=== PATIENT | female | born 1975 | race Caucasian/White ===

== ENCOUNTER → 2017-10-08 | Outpatient (CLI) | payer BC ==
[~2017-10-08] MED LIST: AUBAGIO14 MG PO; AVONEX ADM30 MCG/KIT IM; AVONEX IM; BCP; BCP TD; CENTRUM1 TAB PO; COLOSTRUM; COLOSTRUM PO; LUTERA 0.02 MG-1 TAB PO; MELATONIN1 MG PO; MVI; TYLENOL 325MG325 MG PO; VITAMIN D32000 IU PO; XARELTO STARTER20 MG PO; XARELTO20 MG PO; XYZAL5 MG PO; ZANTAC 150150 MG PO; ZANTAC 7575 MG PO
== END ==
LOC: MC.RAD 08:20
DX: Z12.31 Encounter for screening mammogram for malignant neoplasm of breast (principal)

== ENCOUNTER 2018-04-23 08:45 | Emergency (ER) | payer BC ==
[~2018-04-23] VITALS: Ht 165.1 cm; Wt 104.5 kg
[2018-04-23 08:47] VITALS: TEMP 98.1
[2018-04-23] MEDS ORDERED: PREDNISONE20 MG PO (10:09)
[2018-04-23 10:14] VITALS: BP 124/87; PULSE 82
== END 2018-04-23 10:15 | disposition home or self-care (01) ==
LOC: COL.ER 08:45
DX: R21 Rash and other nonspecific skin eruption (principal); T78.40XA Allergy, unspecified, initial encounter; G35 Multiple sclerosis
CPT/HCPCS: J1100

== ENCOUNTER → 2018-10-28 | Outpatient (CLI) | payer BC ==
[~2018-10-28] MED LIST changes: +PREDNISONE20 MG PO
== END ==
LOC: MC.RAD 10:29
DX: Z12.31 Encounter for screening mammogram for malignant neoplasm of breast (principal)

== ENCOUNTER → 2019-12-01 | Outpatient (CLI) | payer BC | LOC: MC.RAD 12:41 | DX: Z12.31 Encounter for screening mammogram for malignant neoplasm of breast (principal) ==

== ENCOUNTER → 2020-12-03 | Outpatient (CLI) | payer BC | LOC: MC.RAD 07:54 | DX: Z12.31 Encounter for screening mammogram for malignant neoplasm of breast (principal) ==

== ENCOUNTER → 2022-01-03 | Outpatient (CLI) | payer BC | LOC: MC.RAD 09:03 | DX: Z12.31 Encounter for screening mammogram for malignant neoplasm of breast (principal) ==

== ENCOUNTER 2023-11-25 18:04 | Emergency (ER) | payer BC ==
[~2023-11-25] VITALS: Ht 165.1 cm; Wt 102.3 kg
[2023-11-25 18:09] VITALS: BP 170/103; TEMP 98.7
[2023-11-25 18:53] VITALS: PULSE 82
== END 2023-11-25 18:53 | disposition home or self-care (01) ==
LOC: COL.ER 18:04
DX: S63.501A Unspecified sprain of right wrist, initial encounter (principal); S50.812A Abrasion of left forearm, initial encounter; W01.198A Fall on same level from slipping, tripping and stumbling with subsequent striking against other object, initial encounter

== ENCOUNTER → 2024-05-07 | Outpatient (CLI) | payer BC ==
[~2024-05-07] MED LIST changes: +CENTRUM SILVER1 TAB; +DITROPAN 5MG TAB5 MG PO; +ELIQUIS 5MG PO; +NEURONTIN100 MG/CAP PO
== END ==
LOC: MC.RAD 10:49
DX: Z12.31 Encounter for screening mammogram for malignant neoplasm of breast (principal)

== ENCOUNTER 2024-06-29 08:30 | Emergency (ER) | payer BC ==
[~2024-06-29] VITALS: Ht 165.1 cm; Wt 102.3 kg
[~2024-06-29 08:30] MED LIST changes: -CENTRUM SILVER1 TAB; -DITROPAN 5MG TAB5 MG PO; -ELIQUIS 5MG PO; -NEURONTIN100 MG/CAP PO
[2024-06-29 09:00] LABS: BASO # 0.1 K/mm3 (0.0-0.2); BASO % 0.9 % (0.0-2.0); EOS # 0.2 K/mm3 (0.0-0.7); EOS % 2.6 % (0.0-4.0); GRAN # 5.3 K/mm3 (1.4-6.5); GRAN % 55.8 % (42.2-75.2); HEMATOCRIT 45.3 % (37.0-47.0); HEMOGLOBIN 14.4 g/dl (12.5-16.0); LYMPH # 2.9 K/mm3 (1.2-3.4); LYMPH % 31.3 % (20.0-51.0); MEAN CELL VOLUME 99 fl (80.0-100.0); MEAN CORPUSCULAR HEMOGLOBIN 31 pg (27-31); MEAN CORPUSCULAR HGB CONC 32 g/dl (33.0-37.0); MONO # 0.8 K/mm3 (0.1-0.6); MONO % 8.2 % (1.7-9.3); PLATELET COUNT 206 K/mm3 (130-400); REDCELL DISTRIBUTION WIDTH-CV 14.5 % (11.5-14.5)
[2024-06-29] MEDS ORDERED: Pantoprazole 40 MG in NS 10 ML IV ONE (09:00)
[2024-06-29] MEDS ORDERED: Morphine 4 MG/ML VIAL IV ONE (09:00)
[2024-06-29] MEDS ORDERED: methylPREDNISolone Sod Succ 125 MG/2 ML VIAL IV ONE (09:00)
[2024-06-29] MEDS ORDERED: Ondansetron 4 MG/2 ML VIAL IV ONE (09:00)
[2024-06-29 09:20] LABS: ALBUMIN 3.3 g/dL (3.5-5.0); BILIRUBIN,TOTAL 0.5 mg/dL (0.2-1.2); CALCIUM 9.4 mg/dL (8.4-10.2); CREATININE, serum 0.99 mg/dL (0.57-1.11); POTASSIUM 4.1 mEq/L (3.5-4.5)
[2024-06-29] MEDS ORDERED: ELIQUIS 5MG PO (09:58)
[2024-06-29] MEDS ORDERED: DITROPAN 5MG TAB5 MG PO (09:58)
[2024-06-29] MEDS ORDERED: CENTRUM SILVER1 TAB (09:58)
[2024-06-29] MEDS ORDERED: NEURONTIN100 MG/CAP PO (09:59)
[2024-06-29] MEDS ORDERED: hydrALAZINE 20 MG/ML 1 ML VIAL IV ONE (12:45)
[2024-06-29 13:45] VITALS: BP 158/96; PULSE 118; TEMP 98.1
== END 2024-06-29 14:47 | disposition short-term general hospital (02) ==
LOC: COL.ER 08:30
PROVIDERS: Personal Emergency Response Attendant
DX: R53.1 Weakness (principal); G35 Multiple sclerosis; Z79.02 Long term (current) use of antithrombotics/antiplatelets
CPT/HCPCS: J0360; J2270; J2405; J2470; J2919; J7050

== ENCOUNTER 2024-07-16 12:23 | Inpatient (IN) | payer BC ==
[~2024-07-16] VITALS: Ht 165.1 cm; Wt 112.6 kg
[~2024-07-16 12:23] MED LIST changes: +CENTRUM SILVER1 TAB; +DITROPAN 5MG TAB5 MG PO; +ELIQUIS 5MG PO; +NEURONTIN100 MG/CAP PO
[2024-07-16 15:00] VITALS: BP 141/87; PULSE 52; TEMP 97.9
[2024-07-16] MEDS ORDERED: Polyethylene Glycol 3350 17 GM PDS PO PRN (15:00)
[2024-07-16] MEDS ORDERED: Acetaminophen 325 MG TAB PO PRN (15:00)
[2024-07-16] MEDS ORDERED: Naloxone 0.4 MG/ML VIAL IV PRN (15:00)
[2024-07-16] MEDS ORDERED: Docusate Sodium 100 MG CAP PO PRN (15:00)
[2024-07-16] MEDS ORDERED: Sennosides/Docusate 8.6-50 MG TAB PO PRN (15:00)
[2024-07-16] MEDS ORDERED: TESSALON P100 MG/CAP PO (15:49)
[2024-07-16] MEDS ORDERED: TUMS500 MG PO (15:50)
[2024-07-16] MEDS ORDERED: BENADRYL25 M2 PO (15:50)
[2024-07-16] MEDS ORDERED: LASIX 20MG TABL20 MG PO (15:51)
[2024-07-16] MEDS ORDERED: LOVENOX150 MG/ML SQ (15:51)
[2024-07-16] MEDS ORDERED: HYDROCORTISONE30 G3 TP (15:51)
[2024-07-16] MEDS ORDERED: SALONPAS1 EACH TP (15:52)
[2024-07-16] MEDS ORDERED: ROBAXIN 75750 MG/TAB PO (15:52)
[2024-07-16] MEDS ORDERED: [UNRECOGNIZED DRUG - OTHER] TOP (15:53)
[2024-07-16] MEDS ORDERED: ROXICODONE 55 MG/TAB PO (15:54)
[2024-07-16] MEDS ORDERED: K-DUR20 MEQ PO (15:54)
[2024-07-16] MEDS ORDERED: MASON NATURAL2000 IU PO (15:55)
[2024-07-16] MEDS ORDERED: IMITREX100 MG PO (15:56)
[2024-07-16] MEDS ORDERED: [UNRECOGNIZED DRUG - OTHER] PO (15:56)
[2024-07-16] MEDS ORDERED: oxyCODONE 5 MG TAB PO PRN (16:00)
[2024-07-16] MEDS ORDERED: Mineral Oil/Petrolatum Cream 113 GM Jar TP PRN (16:00)
[2024-07-16] MEDS ORDERED: diphenhydrAMINE 25 MG CAP PO PRN (16:15)
[2024-07-16] MEDS ORDERED: Menthol Cough/Sore Throat LOZENGE MM PRN (16:15)
[2024-07-16] MEDS ORDERED: Benzonatate 100 MG CAP PO PRN (16:15)
--- NOTE | 2024-07-16 17:16 | NUR ---
PATIENT BROUGHT TO FLOOR AT APPROXIMATELY 1400. PATIENT ADMITTED WITH ARAGON TO DD WITH DAJUAN OUTPUT. OPEN, OOZING/BLEEDING BLISTERS ON BACK FROM INCISION WHICH HAD DERMABOND APPLIED, PATIENT LATER FOUND OUT WAS ALLERGIC TO. NON-ADHESIVE PAD WITH PAPER TAPE APPLIED. COCCYX PRESSURE WOUND APPEARS TO BE A STAGE 2, OPEN, BARRIER CREAM APPLIED. GILBERTO AREA MOIST, REDDENED. BARRIER CREAM APPLIED. PATIENT REPORTS PAIN, DENIES NEED FOR PAIN MEDICATION AT THIS TIME. PATIENT HAS A DRY COUGH, CORAZON AWARE. INTAKE PERFORMED. NO FURTHER NEEDS. CALL LIGHT IN REACH. BED ALARM ON.
[2024-07-16 17:24] VITALS: BP_SYST 141
[2024-07-16 18:15] VITALS: BP 111/78; PULSE 113; TEMP 97.6
--- NOTE | 2024-07-16 20:30 | NUR ---
Patient with a MEWs score of 3 due to tachycardia/resp rate of 18. Patient denies chest pain/shortness of breath. Is currently on 2L/NC with adequate oxygentation. States O2 was placed earlier due to "coughing fits." Current HR 111 with RR of 18. Noted to have a dry cough. States tessalon perles helps but does not last long enough. Received at approx 1730. States she can not take liquid cough medication. Morton given per dr order and remains at bedside with instruction can take [id number] placed able to leave at bedside. Report given to primary nurse LUZMA Davila. Will continue to monitor.
[2024-07-16] MEDS ORDERED: Gabapentin 300 MG CAP PO SCH (21:00)
[2024-07-16] MEDS ORDERED: Melatonin 3 MG TAB PO SCH (21:00)
[2024-07-16] MEDS ORDERED: Oxybutynin 5 MG TAB PO SCH (21:00)
[2024-07-16] MEDS ORDERED: Levocetirizine 5 MG **** subs to Cetirizine 10 MG PO SCH (21:00)
[2024-07-16] MEDS ORDERED: Methocarbamol 750 MG TAB PO SCH (21:00)
[2024-07-16] MEDS ORDERED: Cetirizine 10 MG TAB PO SCH (21:00)
[2024-07-16] MEDS ORDERED: Hydrocortisone 1% Cream 30 GM TUBE TP SCH (21:00)
[2024-07-16 21:47] VITALS: BP_SYST 111
--- NOTE | 2024-07-16 23:22 | NUR ---
ASSESSMENT COMPLETED EARLIER. MEDICATIONS ADMINISTERED PER EMAR. PT HAS OXYGEN VIA NC RUNNING AT 2L- SHE HAS NO COMPLAINTS OF SHORTNESS OF AIR. SHE IS LAYING IN BED CURRENTLY WATCHING TV. HER DAUGHTER VISITED HER AT BEDSIDE. HALLS ARE IN HER ROOM FOR HER COUGH. SHE HAS NO COMPLAINTS AT THIS TIME. CALL LIGHT IS WITHIN REACH. BED IN LOWEST POSITION, BED ALARMS ARE ON.
--- NOTE | 2024-07-17 01:47 | NUR ---
PT LAYING IN BED ASLEEP- EASILY AROUSED FROM SLEEP. CALL LIGHT IS WITHIN REACH, BED IN LOWEST POSITION, BED ALARM IS ON.
[2024-07-17 05:12] VITALS: BP 115/73; PULSE 102; TEMP 98.8
[2024-07-17 07:00] VITALS: BP_SYST 115
--- NOTE | 2024-07-17 08:30 | NUR ---
PT A&OX4. VSS. PT ON OXYGEN VIA NASAL CANNULA. SHIFT ASSESSMENT COMPLETE AND MEDS ADMINISTERED. PT IS ASSIST X2 WITH SIT TO STAND. WOUND CARE NURSE IN TO SEE PT AND WILL BE PUTTING IN NEW ORDERS FOR SKIN ISSUES. MEPILEX APPLIED TO MIDBACK COVERING INCISIONS. NO FURTHER NEEDS AT THIS TIME. CALL LIGHT WITHIN REACH.
[2024-07-17] MEDS ORDERED: Lidocaine 4% Topical Patch TP SCH (09:00)
[2024-07-17] MEDS ORDERED: Cholecalciferol (Vit D3) 1000 Units TAB PO SCH (09:00)
[2024-07-17] MEDS ORDERED: Patient's Own Medication Item PO SCH (09:00)
[2024-07-17] MEDS ORDERED: Zinc Oxide 20% Ointment 28 GM TUBE TOP PRN (10:15)
[2024-07-17] MEDS ORDERED: Albuterol/Ipratropium 3 MG-0.5 MG/3 ML Neb Soln IH PRN (13:00)
[2024-07-17] MEDS ORDERED: Miconazole 2% Topical Powder BOTTLE TP SCH (13:15)
[2024-07-17] MEDS ORDERED: Albuterol/Ipratropium 3 MG-0.5 MG/3 ML Neb Soln IH SCH (14:00)
--- NOTE | 2024-07-17 14:30 | NUR ---
supervisor fur floor worker met with patient to welcome her to the unit and complete assessment. Patient reports she lives in [place] with her , Mahad, P# [phone]. PCP is Dr. Mckeon, [facility]. No issues affording medications. DPOA-HC is Mahad then her mother Lilian Mata. DME is cane and rollator walker. Patient reports prior to hospitalization she was independent with ADLS. Insurance is [employer]. Patient reports they have a form of transportation for appointments. Patient has two steps into the house. SW explained she would continue to follow her care while here and assist with discharge planning. SW left her contact information for patient in case she has questions or concerns.
[2024-07-17 16:56] VITALS: BP 107/71; PULSE 112; TEMP 98.5
[2024-07-17 19:36] VITALS: BP_SYST 107
[2024-07-17 19:40] VITALS: PULSE 108
[2024-07-17 19:41] VITALS: PULSE 110
--- NOTE | 2024-07-17 19:46 | NUR ---
Patient with MEW score of 3, manually rechecked the HR and it was 108, on dynamap it's 110, denies shortness of air/chest pain, sats 90's, charge nurse informed, will closely monitor.
--- NOTE | 2024-07-17 21:03 | NUR ---
Patient resting in bed, assessed at this time, see shift assessment, A/Ox4, reports pain to her back, PS of 3/10, oxycodone given per request, denies SOA, has been coughing non productive, tessalon carola given, on room air, CAITLIN's on both lower extremities, with faria catheter to dependent drainage, denies further needs, call light and personal items within reach, will continue to monitor.
[2024-07-17] MEDS ORDERED: guaiFENesin 200 MG TAB PO PRN (23:45)
--- NOTE | 2024-07-17 23:50 | NUR ---
Patient called and reports she's been coughing and took cough drops few minutes ago and doesn't seem to work, informed Ross, the PA and received an order for guiafenisen, will continue to monitor.
[2024-07-18 05:48] VITALS: BP 120/77; PULSE 114; TEMP 100
[2024-07-18 06:37] VITALS: PULSE 111; TEMP 98.7
[2024-07-18 07:01] VITALS: BP_SYST 120
--- NOTE | 2024-07-18 08:00 | NUR ---
PATIENT AWAKE AND ALERT, SITTING UP IN BED. PATIENT DENIES ANY NEEDS OR COMPLAINTS AT THIS TIME. CALL LIGHT WTIHIN REACH, FALL PRECAUTIOSN IN PLACE, TEDHOSE ON.
[2024-07-18 17:59] VITALS: BP 170/83; PULSE 132; TEMP 100.7
[2024-07-18 18:20] VITALS: BP 133/82; PULSE 134
--- NOTE | 2024-07-18 18:20 | NUR ---
NIGHT CLAM DREDGE BOAT CAPTAIN NOTIFIED PATIENT HR ELEVATED IN THE 130S, PATIENT WITH TEMP OF 100.7. YANICK MAYER HAD DRY COUGH FOR DAYS AND HAS BEEN RECIEVING MUCINEX AND TESSLON PEARLS INTERMITTENTLY WITH NO IMPROVEMENT. PATIENT DENIES ANY SOB OR FEELING OF HR RACING. PER PATINET SHE JUST "DOESNT FEEL GOOD." NEW ORDERS PLACED BY CLAM DREDGE BOAT CAPTAIN.
--- NOTE | 2024-07-18 18:30 | NUR ---
LAB AND RADIOLOGY NOTIFIED OF NEW ORDERS.
[2024-07-18 19:00] VITALS: BP_SYST 133
[2024-07-18 19:06] LABS: COLLECTION METHOD CATHETER
[2024-07-18 19:13] LABS: MEAN CELL VOLUME 98 fl (80.0-100.0); MEAN CORPUSCULAR HGB CONC 31 g/dl (33.0-37.0); MEAN PLATELET VOLUME 9.9 fl (7.4-10.4); PLATELET COUNT 421 K/mm3 (130-400); REDCELL DISTRIBUTION WIDTH-CV 15.2 % (11.5-14.5)
[2024-07-18 19:14] LABS: URINE APPEARANCE CLOUDY (CLEAR/HAZY); URINE BLOOD 3+ (NEGATIVE); URINE COLOR YELLOW (YELLOW); URINE GLUCOSE NEGATIVE (NEGATIVE); URINE KETONE NEGATIVE (NEGATIVE); URINE NITRATE POSITIVE (NEGATIVE); URINE PROTEIN(semi-quant) 1+ (NEGATIVE); URINE UROBILINOGEN 0.2 E.U/dL (0.2-1.0)
[2024-07-18 19:15] LABS: HEMATOCRIT 29.3 % (37.0-47.0); HEMOGLOBIN 9.2 g/dl (12.5-16.0); MEAN CORPUSCULAR HEMOGLOBIN 31 pg (27-31)
--- NOTE | 2024-07-18 19:15 | NUR ---
ALL NEW ORDERS COMPLETED. PATIENT IS AWAKE AND ALERT, SITTING UP IN BED. DROPLET/CONTACT PRECAUTIONS IN PLACE. PATIENT DENIES ANY NEEDS AT THIS TIME. CALL LIGHT WITHIN REACH. FALL PRECAUTIONS IN PLCAE.
[2024-07-18 19:32] LABS: ALBUMIN 2.1 g/dL (3.5-5.0); BILIRUBIN,TOTAL 0.3 mg/dL (0.2-1.2); CALCIUM 8.4 mg/dL (8.4-10.2); CREATININE, serum 0.69 mg/dL (0.57-1.11); TOTAL PROTEIN 5.6 g/dl (6.2-8.1)
--- NOTE | 2024-07-18 19:32 | NUR ---
CLIFF LOCKHART NOTIFIED OF PATIENT +COVID
[2024-07-18 19:33] LABS: MUCOUS PRESENT (NOT PRESENT); URINE BACTERIA MANY /hpf (NONE SEEN); URINE WBC 20-50 /hpf (0-2)
[2024-07-18 19:44] LABS: BAND 5 % (0-10); EOSINOPHIL 3 % (0-4); LYMPHOCYTE 11 % (20.0-51.0); NEUTROPHILS 77 % (42.0-75.2); NUCLEATED RED BLOOD CELL 1 (0-6)
[2024-07-18 19:45] LABS: ANISOCYTOSIS 1+; HYPOCHROMIA 2+; PLATELET ESTIMATE INCREASED (NORMAL); POLYCHROMASIA 1+
[2024-07-18 19:46] LABS: STOMATOCYTE 1+
[2024-07-18] MEDS ORDERED: Meropenem 500 MG in Water For Injection,Sterile 10 ML IV SCH (20:00)
--- NOTE | 2024-07-18 23:00 | NUR ---
IV inserted to Rt forearm by RN. Scheduled meds administered per JAN. Shift assessment complete. Pt. is tachycardic at this time. 2+ pitting edema to BLE and feet. Respirations are shallow. Pt. has dry, non-productive cough. Lung sounds are diminished at bases. However, upper lobes are clear. Indwelling catheter to dependent drainage and securement device in place- urine is yellow and cloudy. Pt. has small open wound to coccyx and gluteal cleft is both red and excoriated. Redness across panis w/ small area of excoriation to Rt. side. Incision to mid back is dressed w/ mepilex. Noted shadowing to dressing. No further outstanding findings. Pt. c/o worsening dry cough. Hospitalist, MALISSA Saavedra, notified. New orders received.
[2024-07-18] MEDS ORDERED: DEXTROMETHORPHAN PO PRN (23:15)
[2024-07-18] MEDS ORDERED: GUAIFENESIN PO PRN (23:15)
[2024-07-19 05:16] VITALS: BP 131/67; PULSE 115; TEMP 99
--- NOTE | 2024-07-19 05:51 | NUR ---
Pt. VS improved since earlier in the shift. O2 at 2L/min via nasal cannula Pt. denies complaints or request at this time. Pt currently resting in bed w/ call light in reach.
[2024-07-19 07:02] VITALS: BP_SYST 131
--- NOTE | 2024-07-19 09:10 | NUR ---
PT RESTING IN BED, ALERT AND ORIENTEDX4. PT RATES PAIN IN BACK /. PT COMPLAINS OF HEADACHE AND SHORTNESS OF BREATH. GAVE PT TYLENOL AND SAT PT UP IN BED. ASSESSED PT. PT LUNGS ARE WHEEZY. TEDS ON LOWER EXTREMITES. PUT DESENEX AROUND PANUS AND PERINEUM AREAS. GAVE PT MORNING MEDS. COULD NOT FIND PT HOME MED. NOT IN MED ROOM OR PT ROOM. STILL LOOKING FOR IT. NO OTHER COMPLAINTS AT THIS TIME. CALL LIGHT WITHIN REACH.
--- NOTE | 2024-07-19 10:41 | NUR ---
pharmacy notified of missing home medicaitons. contacted last nurse to chart on giving med. last nurse states that it was put in the pt bin in the med room. pt states that he did not take the med home with him either.
[2024-07-19 17:18] VITALS: BP 134/64; PULSE 131; TEMP 100
[2024-07-19 19:07] VITALS: BP_SYST 134
--- NOTE | 2024-07-19 20:45 | NUR ---
Scheduled meds administered per JAN. Shift assessment complete. Pt. is on 2L O2/min via nasal cannula. Respirations are shallow. Lung sounds still diminished at LUCY bases w/ LUCY upper lobes being clear. Dry cough still present. Indwelling catheter to dependent drainage and securement device in place- urine is yellow and cloudy. Small open wound to coccyx and gluteal cleft is red and excoriated. Redness and excoriation improved since previous NOC shift. Pt. requesting break from CAITLIN hose. CAITLIN hose removed. 2+ edema to RLE persists. Edema to LLE pitting +1. Area of redness to Rt stauffer/calf. Pt denies pain to the area. Incidion to mid back is dressed w/ mepilex- dressing CDI. No further outstanding findings. Call light in reach.
[2024-07-20] VITALS (15 sets, daily range): BP systolic 94–130; BP diastolic 56–84; PULSE 68–124; TEMP 93–102.6
--- NOTE | 2024-07-20 01:37 | NUR ---
Oral temp of 100.3. PRN tylenol administered per JAN. Will continue to monitor. Pt. requesting Mucinex DM. Med administered per JAN.
--- NOTE | 2024-07-20 02:20 | NUR ---
Upon reassesment, temperature is 102.6. Hospitalist, MALISSA Saavedra, notified. New orders received. Lab notified of new orders.
[2024-07-20] MEDS ORDERED: Ibuprofen 400 MG TAB PO ONE (02:30)
--- NOTE | 2024-07-20 03:20 | NUR ---
Temperature 98.4 after administration of Motrin per JAN. Ice pack to axilla and cool rag to forehead. Pt. states she is "feeling much better." Will continue to monitor.
--- NOTE | 2024-07-20 06:06 | NUR ---
Pt's temperature remains controlled at this time- now reading 97.9. Pt's HR is now WNL at 90 bpm. Pt states she is feeling "a lot better" this morning. Denies request or complaints. Pt is currently resting in bed w/ call light in reach and fall precautions in place.
--- NOTE | 2024-07-20 07:41 | NUR ---
Bedside report received from IBAN Fuentes. Pt resting in bed with no complaints. Call light within reach and fall precautions in place.
--- NOTE | 2024-07-20 09:25 | NUR ---
Notifed Dr. Boswell about pt being tachycardia when becoming febrile. VORB to implement telemetry.
--- NOTE | 2024-07-20 10:15 | NUR ---
Pt awake in bed visiting with daughter at bedside. Shift assessment completed. VSS. Telemetry in place. Silvestre catheter in place dependently draining clear yellow urine. Pericare provided. INT to Rt forearm patent, flushes without complications. Pt provided home medication to this nurse to send to pharmacy. Pharmacist Mary Kate notifed of home medicaiton in pt bin in med room. Pt denies pain at this time rating general discomfort 2/10. Pt has no request at this time. Call light within reach and fall precautions in place.
--- NOTE | 2024-07-20 10:56 | NUR ---
Pt awake in bed visiting with
--- NOTE | 2024-07-20 11:00 | NUR ---
ultra sound technician brought home medication back to IPR unit. This nurse and pharmacy assistant returned home medicaiton to pt and pt placed home medicaiton in bedside table drawer. This nurse and pharmacy assistant searched pt room to look for missing home medication from prior and unsuccessful at finding lost medicaiton. Pt has no request at this time. Charge nurse Loreta and tank house operator helper Vesna aware of pt keeping home medication at bedside.
--- NOTE | 2024-07-20 19:20 | NUR ---
THIS RT WEANED PT TO RA AT THIS TIME. WILL REASSESS O2 NEEDS THROUGHOUT THE NIGHT
[2024-07-21] VITALS (12 sets, daily range): BP systolic 109–134; BP diastolic 63–72; PULSE 99–113; TEMP 98.3–100.5
--- NOTE | 2024-07-21 08:20 | NUR ---
PATIENT TEMP AT 100.8. PO TYLENOL ADMINISTERED.
--- NOTE | 2024-07-21 10:38 | NUR ---
SUTURE REMOVED FROM RUE. PATIENT TOLERATED WELL. NO BANDAGE APPLIED IT WAS NOT NEEDED.
--- NOTE | 2024-07-21 11:13 | NUR ---
PATIENT ALERT AND ORIENTED X4. VSS. PATIENT HERE FOR REHAB S/P BACK SURGERY. PATIENT DENIES ANY PAIN THIS MORNING. INCISION TO MID BACK WITH MINIMAL DRAINAGE, DRESSING CHANGED TO NON-ADHESIVE AND PAPER TAPE, DEREK SUTURE REMOVED PER DR CHANDRA ORDERS. SEE SKIN ASSESSMENT. AM MEDS ADMINISTERED. ARAGON TO DD WITH DAJUAN OUTPUT. CATH CARE PROVIDED. PATIENT RESTING IN BED, NO FURTHER NEEDS. CALL LIGHT IN REACH. BED ALARM ON.
[2024-07-21] MEDS ORDERED: Azithromycin 500 MG in NS 250 ML IV SCH (12:30)
[2024-07-22] VITALS (14 sets, daily range): BP systolic 107–139; BP diastolic 63–89; PULSE 95–103; TEMP 97.6–98.6
--- NOTE | 2024-07-22 01:21 | NUR ---
PT LAYING IN BED. ASSESSMENT COMPLETED EARLIER. PT HAS NO COMPLAINTS OF SOA AT THIS TIME. MEDICATIONS ADMINISTERED PER EMAR. BED IN LOWEST POSITION WITH BED ALARMS ON. IV SITE FLUSHED WITH 5 ML OF SALINE. NO SIGNS OF PHLEBITIS OR INFILTRATION. CALL LIGHT IS WITHIN REACH NO CONCERNS AT THIS TIME.
--- NOTE | 2024-07-22 05:03 | NUR ---
NIGHT HAS BEEN UNEVENTFUL. CALL LIGHT IS WITHIN REACH AND BED ALARM IS ON, BED IS IN LOWEST POSITION.
--- NOTE | 2024-07-22 08:40 | NUR ---
PATIENT SITTING UP IN BED. ALERT AND ORIENTED. DENIES PAIN, JUST STATES SHE HAS DISCOMOFRT AT HER BASELINE, 12/29. SHIFT ASSESSMENT COMPLETE. INCISION TO RIGHT UPPER ARM IS CDI. OPEN TO AIR. INCISION TO LUMBAR SPINE HAS NONADHESIVE DRSG AND PAPER TAPE IN PLACE. CDI. REDNESS NOTED TO GROIN AREA. HYGIENE PROVIDED, DESENEX APPLIED. GILBERTO AND ARAGON CARE PROVIDED. NO PROGRESSION OF STAGE I AND STAGE II NOTED. CDI. ARAGON DD WITH DARK DAJUAN URINE NOTED. PATIENT C/O COUGH AND REQUESTING MUCINEX DM. THIS RN ADMINISTERED MUCINEX DM. PATIENT NOW SITTING UP TO EAT BREAKFAST. DENIES FURTHER NEEDS OR CONCERNS AT THIS TIME. ALL NEEDS MET AT THIS VISIT. CALL LIGHT WITHIN REACH.
--- NOTE | 2024-07-22 09:32 | NUR ---
PATIENT CALLED TO USE BED FONG. THIS RN ASSISTED PATIENT TO USE BED FONG. PATIENT HAD LARGE, SEMI FORMED BROWN STOOL IN BED FONG. THIS RN PROVIDED GILBERTO CARE. ZINC APPLIED TO SORES AND SURROUNDING AREAS FOR PREVENTION. WHILE PATIENT WAS ON RIGHT SIDE, THIS RN CHANGED DRESSING TO BACK INCISION. NONADHESIVE DRSG TO SITE, SECURED WITH PAPER TAPE. PATIENT TOLERATED WELL. ARAGON EMPTIED. 1500 MLS OF CLEAR YELLOW URINE NOTED. AT BEDSIDE. DENIES FURTHER NEEDS OR CONCERNS AT THIS TIME. CALL LIGHT WITHIN REACH.
--- NOTE | 2024-07-22 13:22 | NUR ---
PATIENT WORKING WITH THERAPY. THIS RN ATTEMPTED TO ADMINISTER IV ABX PER MAR, BUT PATIENT ASKED IF IT COULD WAIT UNTIL 1400, D/T DIFFICULTY GETTING IN BED WITH IV INFUSING.
--- NOTE | 2024-07-22 15:28 | NUR ---
Admission QIM scores were reviewed by the team. Code of 88 chosen for oral hygiene was determined by team discussion to be the most usual performance before interventions for this patient during the assessment period. Code of 88 chosen for toileting hygiene was determined by team discussion to be the most usual performance for this patient during the discharge assessment period. Code of 88 chosen for shower/bathe self was determined by team discussion to be the most usual performance before interventions for this patient during the assessment period. Code of 88 chosen for lower body dressing was determined by team discussion to be the most usual performance before interventions for this patient during the assessment period. Code of 2 chosen for rolling left to right was determined by team discussion to be the most usual performance before interventions for this patient during the assessment period. Code of 2 chosen for sit to lying was determined by team discussion to be the most usual performance before interventions for this patient during the assessment period. Code of 3 chosen for lying to sitting side of bed was determined by team discussion to be the most usual performance before interventions for this patient during the assessment period. Code of 88 chosen for sit to stand was determined by team discussion to be the most usual performance for this patient during the discharge assessment period. Code of 88 chosen for chair to bed was determined by team discussion to be the most usual performance for this patient during the discharge assessment period.--PD Clarissa
--- NOTE | 2024-07-22 22:20 | NUR ---
PT IS LAYING IN BED. ASSESSMENT COMPLETED EARLIER. NO COMPLAINTS AT THIS TIME. IV FLUSHED NO SIGNS OF IV COMPLICATIONS. NO SIGNS OF PHLEBITIS OR INFILTRATION. PT HAS CALL LIGHT WITHIN REACH. BED IS IN LOWEST POSITION WITH BED ALARMS ACTIVATED.
[2024-07-23] VITALS (9 sets, daily range): BP systolic 101–124; BP diastolic 61–72; PULSE 83–97; TEMP 97.7–98.3
--- NOTE | 2024-07-23 03:55 | NUR ---
ATTEMPTED IV START ON LEFT AC. FLASHBACK WAS NOTED AND IV WAS ADVANCED. IV WAS INFILTRATED. THIS NURSE REMOVED THE IV AND COVERED WITH GAUZE. THIS NURSE NOTIFIED BUTTON FACING MACHINE OPERATOR AND HOUSE STATED TO LEAVE IV THAT IS CURRENTLY IN FOR THE TIME BEING AND NOTIFY [facility] IV SERVICES DUE TO THE EDEMA IN PT HANDS.
--- NOTE | 2024-07-23 08:30 | NUR ---
Pt is A&Ox4. Pt eating breakfast. [facility] Services in room placing new IV. IV placed in LAC. Pt is on contact/droplet precautions for COVID. Pt has productive cough with scant amount of white sputum. No c/o pain. Skin treatments done. Shift assessment complete and medications administered. Pt is x2 assist. No further needs at this time. Call light within reach.
--- NOTE | 2024-07-23 12:36 | NUR ---
ironworker helper shop attended IPR team conference with IPR team to discuss patient s progress. Patient is not medically ready for discharge. Patient will be re-evaluated next week by the team. SW will continue to follow.
--- NOTE | 2024-07-23 14:30 | NUR ---
Reviewed Team Conference notes w/ pt & w/ copy provided. Informed them the team is planning on re-evaluating next Sunday, which they were good w/. Spoke w/ them regarding concern for insurance & her being in isolation. Explained to them, that pt is not sick enough to return to acute care & explained the amount of therapy provided. Continued to explain, insurance would prefer she is doing more than less if able to tolerate. She agreed w/ this. They had no other questions at this time. SW will continue to follow to provide support & assist w/ d/c planning.
--- NOTE | 2024-07-23 23:11 | NUR ---
PT LAYING IN BED. SHE HAS NO COMPLAINTS AT THIS TIME. IV FLUSHED WITH 5 ML OF SALINE. NO SIGNS OF PHLEBITIS OR INFILTRATION. HER BED IS IN THE LOWEST POSITION AND BED ALARMS ARE ON. ASSESSMENT COMPLETED EARLIER, MEDICATIONS ADMINISTERED PER EMAR.
[2024-07-24] VITALS (7 sets, daily range): BP systolic 105–132; BP diastolic 74–85; PULSE 87–106; TEMP 97.3–99.1
--- NOTE | 2024-07-24 02:36 | NUR ---
PT WAS TAKEN OFF OF TELEMETRY. POWDER WAS APPLIED TO HER BREAST AND GROIN. NO COMPLAINTS AT THIS TIME. CALL LIGHT IS WITHIN REACH. HER BED IS IN LOWEST POSITON AND ALARMS ARE ON.
[2024-07-24 06:32] LABS: BASO # 0.2 K/mm3 (0.0-0.2); BASO % 2.1 % (0.0-2.0); EOS # 0.8 K/mm3 (0.0-0.7); GRAN # 3.8 K/mm3 (1.4-6.5); GRAN % 54.2 % (42.2-75.2); LYMPH # 1.5 K/mm3 (1.2-3.4); LYMPH % 21.5 % (20.0-51.0); MEAN CELL VOLUME 100 fl (80.0-100.0); MEAN CORPUSCULAR HGB CONC 30 g/dl (33.0-37.0); MEAN PLATELET VOLUME 10.3 fl (7.4-10.4); MONO # 0.7 K/mm3 (0.1-0.6); MONO % 9.9 % (1.7-9.3); PLATELET COUNT 420 K/mm3 (130-400); RED BLOOD COUNT 2.74 M/mm3 (4.10-5.30); REDCELL DISTRIBUTION WIDTH-CV 15.7 % (11.5-14.5)
[2024-07-24 06:34] LABS: HEMOGLOBIN 8.2 g/dl (12.5-16.0); MEAN CORPUSCULAR HEMOGLOBIN 30 pg (27-31)
[2024-07-24 06:35] LABS: HEMATOCRIT 27.3 % (37.0-47.0)
[2024-07-24 06:54] LABS: CALCIUM 8.7 mg/dL (8.4-10.2); CREATININE, serum 0.58 mg/dL (0.57-1.11); POTASSIUM 3.8 mEq/L (3.5-4.5)
--- NOTE | 2024-07-24 07:30 | NUR ---
Patient a&ox4. No c/o pain or n/v. Up in w/c for breakfast per dr's orders. Patient transfers with slideboard with assist x1-2. Productive cough improving and only coughing up scant amounts. TEDs on. Shift assessment complete and medications administered. No further needs at this time.
--- NOTE | 2024-07-24 19:28 | NUR ---
RECEIVED CHANGE OF SHIFT REPORT FROM DAY SHIFT NURSE. PATIENT RESTING IN BED, CALL LIGHT IN REACH, BED EXIT ALARM ON. DENIES ANY NEEDS OR COMPLAINTS AT TIME OF REPORT.
--- NOTE | 2024-07-24 20:00 | NUR ---
DECREASED ROM/STRENGTH TO BACK DUE TO SURGERY. DENIES CHEST PAIN/SHORTNESS OF BREATH/NAUSEA CURRENTLY. DENIES C/O PAIN AT THIS TIME. REPORTS HAS NOT NEEDED TO WEAR OXYGEN FOR THE PAST SEVERAL NIGHTS. PATIENT CONTINUES ON ROOM AIR.
[2024-07-25 06:13] VITALS: BP 132/83; PULSE 95; TEMP 98.2
[2024-07-25 07:00] VITALS: BP_SYST 132
--- NOTE | 2024-07-25 07:41 | NUR ---
CHANGE OF SHIFT REPORT GIVEN TO DAY SHIFT NURSECATHY.
--- NOTE | 2024-07-25 08:00 | NUR ---
Pt a&ox4. No c/o pain or n/v. Pt is currently up in w/c working with therapy. Pt transfers with assist x2 with slideboard. Unable to ambulate at this time. Incisions on mid back are CDI and covered with telfa and paper tape. Shift assessment complete and morning medications administered. IV in LAC is patent and intact. No further needs at this time. Call light within reach.
[2024-07-25] MEDS ORDERED: Psyllium Powder 5.8 G (3.4 G Psyllium) PACKET PO SCH (11:00)
[2024-07-25 17:06] VITALS: BP 128/84; PULSE 98; TEMP 98.4
[2024-07-25 19:30] VITALS: BP_SYST 128
--- NOTE | 2024-07-25 19:30 | NUR ---
RECEIVED CHANGE OF SHIFT REPORT FROM DAY SHIFT NURSE. PATIENT RESTING IN BED, EXIT ALARM ON, CALL LIGHT IN REACH. DENIES ANY NEEDS AT TIME OF REPORT. CONTINUES ON ROOM AIR.
--- NOTE | 2024-07-26 | NUR ---
PATIENT RESTING IN BED WITH EYES CLOSED, EVEN NONLABORED BREATHING. DOES NOT WAKE DURING NURSE ROUNDING. EXIT ALARM ON, CALL LIGHT WITHIN PATIENT REACH.
--- NOTE | 2024-07-26 03:37 | NUR ---
RESTING IN BED, EYES CLOSED, BREATHING EVEN/NONLABORED. DID NOT WAKE DURING NURSE ROUNDING. BED EXIT ALARM ON, CALL LIGHT WITHIN PATIENT REACH.
[2024-07-26 05:48] VITALS: BP 128/65; PULSE 74; TEMP 98.5
--- NOTE | 2024-07-26 06:43 | NUR ---
PT A/O X4, TRANSFER WITH SLIDE BOARD TO COMMODE WITH SBAX2. RETURNED TO WHEEL CHAIR. PARTICIPATED FULLY WITH THERAPY. VSS, TOOK ALL MEDS WELL. PT USES OWN HOME MED FOR MS PER ORDERS. FAMILY IN FOR [place] G[place].
--- NOTE | 2024-07-26 06:55 | NUR ---
CHANGE OF SHIFT REPORT GIVEN TO DAY SHIFT NURSEIVAN.
[2024-07-26 07:07] VITALS: BP 119/78; BP_SYST 128; PULSE 78; TEMP 98.3
[2024-07-26 16:56] VITALS: BP 144/89; PULSE 103; TEMP 98.4
[2024-07-26 18:30] VITALS: BP_SYST 144
--- NOTE | 2024-07-26 19:08 | NUR ---
BEDSIDE SHIFT REPORT RECIEVED AT THIS TIME. PT RESTING IN BED WATCHING TV. FALL PRECAUTIONS IN PLACE. CALL LIGHT WITHIN REACH. NO FURTHER NEEDS AT THIS TIME.
[2024-07-27 05:34] VITALS: BP 145/83; PULSE 98; TEMP 98.8
[2024-07-27 07:00] VITALS: BP_SYST 145
--- NOTE | 2024-07-27 09:09 | NUR ---
PT REFUSING TO GET UP OR EAT BREAKFAST. AM MEDS GIVEN ORDERED. PT WANTS TO REST AND MAYBE EAT LATER.
--- NOTE | 2024-07-27 10:13 | NUR ---
ASSISTED PT TO COMMODE. LG SOFT BM. PT UNABLE/WILLING TO STAND AFTER BM. MAX ASSIST X2 TO STAND AND THEN CLEANED. AFTER CLEANING PT STATED SHE COULD NO LONGER STAND AND WAS LOWERED TO FLOOR UNDER TOTAL CONTROL OF AIDE AND NURSE. A TOTAL OF 5 STAFF USED TO GET PT OFF FLOOR AND INTO WHEEL CHAIR. PT POSTIONED FOR COMFORT CALL LIGHT IN REACH AND TABLE WITH PERSONAL ITEMS AVAILABLE.
--- NOTE | 2024-07-27 11:11 | NUR ---
SLIDE BOARD TO SCOTT HE BM, SLIDE BOARD BACK TO WHEEL CHAIR.
[2024-07-27 17:50] VITALS: BP 130/72; PULSE 100; TEMP 97.8
[2024-07-27 19:00] VITALS: BP_SYST 130
--- NOTE | 2024-07-27 19:00 | NUR ---
RECEIVED CHANGE OF SHIFT REPORT FROM DAY SHIFT NURSE.
--- NOTE | 2024-07-28 02:53 | NUR ---
Patient cooperative with assists in repositioning in bed. Denied chest pain/shortness of breath/nausea during shift so far. Resting in bed with eyes closed currently with even/nonlabored breathing. Does not wake during nurse rounding. Silvestre to SERA continues. Bed exit alarm on with call light in patient's reach.
[2024-07-28 05:28] VITALS: BP 130/76; PULSE 98; TEMP 98.9
[2024-07-28 07:00] VITALS: BP_SYST 130
--- NOTE | 2024-07-28 07:18 | NUR ---
CHANGE OF SHIFT REPORT GIVEN TO DAY SHIFT NURSECATHY.
--- NOTE | 2024-07-28 08:00 | NUR ---
Pt a&ox4. VSS. No c/o pain or n/v at this time. Applied CAITLIN hose bilaterally. Serosanguineous drainage present on mid back dressing. Telfa and paper tape dressing. Planning to change after shower with OT. Shift assessment complete and medications administered. Transfers with assist x2, gait belt, and slideboard. No further needs at this time. Call light within reach.
--- NOTE | 2024-07-28 14:00 | NUR ---
metalworker met with pt to introduce herself and check-in. She reports no needs and is aware of the 07/30 10:30am family meeting. Discharge Plan: re-eval
[2024-07-28 16:30] VITALS: BP 125/81; PULSE 103; TEMP 98
[2024-07-28 19:00] VITALS: BP_SYST 125
[2024-07-29 05:00] VITALS: BP 125/82; PULSE 107; TEMP 98.3
--- NOTE | 2024-07-29 06:26 | NUR ---
THE PATIENT RESTED WELL ALL NIGHT. THE PATIENT HAS A ARAGON THAT IS DRAINING DAJUAN COLORED URINE. NO PAIN REPORTED OVERNIGHT. CALL LIGHT AND PERSONAL BELONGINGS WITHIN REACH.
[2024-07-29 07:18] VITALS: BP_SYST 125
--- NOTE | 2024-07-29 09:58 | NUR ---
Pt doing okay this morning. She did not want to get out of bed when breakfast arrived. I did end up convincing her as therapy was going to be showing up soon. Pt did okay using the slide board. Pt ate all breafkast with no complaints.
--- NOTE | 2024-07-29 13:45 | NUR ---
Report from LUZMA Arriaga
[2024-07-29 17:13] VITALS: BP 132/72; PULSE 96; TEMP 98.1
--- NOTE | 2024-07-29 17:23 | NUR ---
Patient sitting up inn the wheelchair eating dinner. Family at the bedside. Silvestre intact. No further needs expressed. Call light within reach
[2024-07-29 22:44] VITALS: BP_SYST 132
--- NOTE | 2024-07-29 23:29 | NUR ---
PT WAS SITTING IN WHEELCHAIR. THIS NURSE HELPED THE PT GET INTO BED WITH SLIDEBOARD. THIS NURSE CHANGED HER INTO A YELLOW GOWN AND PLACED CLOTHES ON BENCH. ASSESSMENT COMPLETED EARLIER AND MEDICATIONS ADMINISTERED PER EMAR. INCISION IS INTACT HOWEVER IT IS DRAINING- DRESSING WAS CHANGED AT THIS TIME. PT HAS NO CONCERNS AT THIS TIME. THIS NURSE COMPLETED CATH CARE. CALL LIGHT IS WITHIN REACH BED IS IN LOWEST POSITION.
--- NOTE | 2024-07-30 03:22 | NUR ---
PT IS IN HER BED SLEEPING. SHE IS ABLE TO AWAKE EASILY. SHE HAS NO COMPLAINTS AT THIS TIME. CALL LIGHT IS WITHIN REACH. BED ALARMS ARE ON.
[2024-07-30 04:42] VITALS: BP 112/75; PULSE 104; TEMP 98.2
[2024-07-30 07:00] VITALS: BP_SYST 112
--- NOTE | 2024-07-30 08:00 | NUR ---
PT A&OX4. VSS. NO C/O PAIN OR N/V AT THIS TIME. PT EATING BREAKFAST CURRENTLY WHILE SITTING ON THE SIDE OF THE BED. ASSISTED PATIENT TO COMMODE WITH ASSIST FROM AIDE, SLIDEBOARD, AND GAIT BELT. PT ON CONTACT PRECAUTIONS WHILE WAITING TO RULE OUT C DIFF. UNABLE TO COLLECT STOOL SAMPLE THIS AM. SHIFT ASSESSMENT COMPLETE AND MEDICATIONS ADMINISTERED. ARAGON SECURED TO SHORTS AND APPROPRIATELY HUNG ON BED. NO FURTHER NEEDS AT THIS TIME. CALL LIGHT WITHIN REACH.
--- NOTE | 2024-07-30 15:47 | NUR ---
child welfare worker attended team conference meeting and pt will be a re-eval to next week to further her progress. Pt might need a FWW and wheelchair for community outings/long distance. SW attended family meeting at 10:30am with , Mahad present. They were agreeable and verbalized understanding of this plan. SANDRA later provided team conference notes to pt and she had no questions or concerns regarding these. Discharge Plan: re-eval
[2024-07-30 16:48] LABS: CLOSTRIDIUM DIFF A/B POS
[2024-07-30 17:54] VITALS: BP 128/70; PULSE 108; TEMP 98.2
--- NOTE | 2024-07-30 18:30 | NUR ---
C DIFF RESULTS CAME BACK POSITIVE AND HOSPITALIST NOTIFIED OF THIS.
[2024-07-30 21:19] VITALS: BP_SYST 128
--- NOTE | 2024-07-30 21:43 | NUR ---
ASSESSMENT COMPLETED EARLIER. MEDICATIONS ADMINISTERED PER EMAR. PT AOX4. NO CONCERNS AT THIS TIME. CALL LIGHT IS WITHIN REACH. BED IS IN LOWEST POSITON WITH BED ALARMS ON
[2024-07-31 04:06] VITALS: BP 134/72; PULSE 104; TEMP 98.2
[2024-07-31 07:05] VITALS: BP_SYST 134
[2024-07-31] MEDS ORDERED: Vancomycin 125 MG CAP PO SCH (08:30)
--- NOTE | 2024-07-31 09:35 | NUR ---
PT UP TO BSC HAS BM. UP TO WHEEL CHAIR AFTER BREAKFAST. REVIEWED CAREPLAN. PT TO THERAPY FOR AM. 1300 MLS CLEAR YELLOW URINE EMPTIED FROM [place] THIS AM. AM MEDS GIVEN PER ORDERS. PT CONTINUES TO IMPROVE WITH TRANSFERS. USING WALKER TO TRANSFER TO COMMODE.
[2024-07-31 16:58] VITALS: BP 130/80; PULSE 96; TEMP 98
--- NOTE | 2024-07-31 18:36 | NUR ---
PT UNABLE TO VOID. BLADDER SCAN >500, STRAIGHT CATH AND RETURNED 650 MLS CLEAR YELLOW URINE. PT TOLERATED WELL. [facility] PROVIDED PRE AND POST CATH.
[2024-07-31 19:24] VITALS: BP_SYST 130
--- NOTE | 2024-07-31 22:23 | NUR ---
PT WENT TO COMMODE AND HAD NO VOIDING OR BM. PT WAS BLADDER SCANNED- 634 ML OF URINE IN BLADDER.
--- NOTE | 2024-08-01 03:23 | NUR ---
PT LAYING IN BED. MEDICATIONS ADMINISTERED PER EMAR. ASSESSMENT COMPLETED EARLIER- VSS AND AOX4. PT ATTEMPTED TO GO TO BATHROOM ON BEDSIDE COMMODE. PT DID NOT VOID NOR HAVE A BOWEL MOVEMENT, PASSED GAS. PT REQUESTED TO GO BACK TO BED. BLADDER SCANNED PT AND FOUND 645 ML IN BLADDER. STRAIGHT CATHED PT AND RETRIEVED 700ML OF URINE- [facility] PROVIDED BEFORE AND AFTER STRAIGHT CATH. DRESSING HAD DRAINAGE- THIS NURSE CHANGED DRESSING AND IS NOW CDI. PT HAS NO CONCERNS AT THIST CONCHA. BED IS IN LOWEST POSITON AND BED ALARMS ARE ON. CALL LIGHT IS WITHIN REACH.
--- NOTE | 2024-08-01 05:32 | NUR ---
BLADDER SCANNED PT. PT HAD 800 ML IN BLADDER. PT ATTEMPTED TO USE BEDSIDE COMMODE. PT VOIDED SOME AND HAD A BM. RESCENNED PT AND FOUND 701 ML OF URINE IN BLADDER.
[2024-08-01 06:16] VITALS: BP 124/75; PULSE 104; TEMP 98.2
[2024-08-01 07:00] VITALS: BP_SYST 124
--- NOTE | 2024-08-01 09:25 | NUR ---
PT UP TO BR WITH THERAPY. BM AND VOIDED. POST VOID RESIDUAL OF 377 MLS. PT CONTINUES TO NOT BE ABLE TO EMPTY BLADDER VOIDING. AMBULATING MUCH BETTER TODAY. AM MEDS GIVEN ORDERED. CAREPLAN REVIEWED WITH PT.
--- NOTE | 2024-08-01 14:10 | NUR ---
sheet metal lay out worker met with pt and , Mahad to check-in and assess for any needs. They verbalized no needs at this time. Discharge Plan: re-eval
--- NOTE | 2024-08-01 17:36 | NUR ---
PT VOIDING BUT INCOMPLETE EMPTYING, BLADDERSCAN SHOWED 650. STRAIGHT CATH 600 MLS YELLOW URINE.
[2024-08-01 18:10] VITALS: BP 122/62; PULSE 109; TEMP 97.4
[2024-08-01 18:30] VITALS: BP_SYST 122
--- NOTE | 2024-08-01 20:00 | NUR ---
PT AWAKE AND RESTING IN BED. SCHEDULED MEDS GIVEN PER eMAR. PRN MUCINEX GIVEN FOR COUGH AT PT'S REQUEST. DRESSING CHANGED ON LEFT SIDE OF ABDOMEN FROM PREVIOUS LOVENOX SHOT. LOVENOX GIVEN IN LEFT ARM TO PREVENT FURTHER BLEEDING IN ABDOMEN. DRESSING CHANGED ON RIGHT SIDE OF BACK FROM SURGERY. BANDAIDS REMOVED AND REPLACED WITH GAUZE. VOLTERAN GEL APPLIED TO RIGHT KNEE. ALL NEEDS MET AT THIS TIME. BED ALARM ON AND CALL LIGHT WITHIN REACH.
--- NOTE | 2024-08-01 23:34 | NUR ---
BLADDER SCAN SHOWED 575ML. PT VOIDED TWICE IN THE LAST 5 HOURS. PT DOES NOT WANT TO BE STRAIGHT CATHETERIZED. SPOKE TO NATASHA MCKINNEY ABOUT NOT CONTINUING WITH CATHETERIZTION. NATASHA AGREED TO NOT CATH PT. NO FURTHER CONCERNS
--- NOTE | 2024-08-02 01:09 | NUR ---
PT REQUESTS STRAIGHT CATH AFTER TWO BATHROOM TRIPS WITH FEELINGS OF INCOMPLETE EMPTYING. STATES URGENCY AND FREQUENCY IS PREVENTING HER FROM GOING TO SLEEP. BLADDER SCAN BEFORE PROCEDURE SHOWED 1188ML. STRAIGHT CATH DRAINED ABOUT 925ML OF CLEAR, YELLOW URINE. PT TOLERATED PROCEDURE WELL. STATES SHE IS NOT FEELING MUCH PRESSURE. NO FURTHER CONCERNS/
[2024-08-02 05:40] VITALS: BP 142/65; PULSE 103; TEMP 98.1
--- NOTE | 2024-08-02 05:57 | NUR ---
BLADDER SCAN SHOWED 506ML. PT REFUSED STRAIGHT CATH AT THIS TIME. PLAN TO RECHECK IN 2 HOURS. PT AGREED TO PLAN.
[2024-08-02 07:00] VITALS: BP_SYST 142
--- NOTE | 2024-08-02 08:30 | NUR ---
PT A&OX4. VSS. BLADDER SCANNED PT AT 0730 POST VOID AND IT SHOWED 625ML OF RESIDUAL LEFT IN THE BLADDER. STRAIGHT CATHETERIZATION DONE ON PT AND EMPTIED OUT 675ML TOTAL. PATIENT STATED SHE WAS ABLE TO FEEL RELIEF AFTER THIS WAS DONE. PATIENT DOES NOT C/O ANY PAIN AT THIS TIME. SHIFT ASSESSMENT COMPLETE AND MEDICATIONS ADMINISTERED. NO PRNS GIVEN AT THIS TIME. PT IS ASSIST X1-2 WITH WALKER AND GAIT BELT FOR PIVOT TRANSFERS AND AMBULATING SHORT DISTANCES. PT CURRENTLY ON CONTACT PLUS PRECAUTIONS FOR C DIFF. NO FURTHER NEEDS AT THIS TIME. CALL LIGHT WITHIN REACH.
[2024-08-02 08:49] LABS: BASO # 0.1 K/mm3 (0.0-0.2); BASO % 1.6 % (0.0-2.0); EOS # 0.6 K/mm3 (0.0-0.7); EOS % 8.6 % (0.0-4.0); GRAN # 4.6 K/mm3 (1.4-6.5); GRAN % 61.9 % (42.2-75.2); HEMOGLOBIN 10.3 g/dl (12.5-16.0); LYMPH # 1.4 K/mm3 (1.2-3.4); LYMPH % 19.4 % (20.0-51.0); MEAN CELL VOLUME 100 fl (80.0-100.0); MEAN CORPUSCULAR HEMOGLOBIN 31 pg (27-31); MEAN CORPUSCULAR HGB CONC 31 g/dl (33.0-37.0); MEAN PLATELET VOLUME 10.2 fl (7.4-10.4); MONO # 0.6 K/mm3 (0.1-0.6); MONO % 8.2 % (1.7-9.3); PLATELET COUNT 374 K/mm3 (130-400); RED BLOOD COUNT 3.36 M/mm3 (4.10-5.30); REDCELL DISTRIBUTION WIDTH-CV 16.5 % (11.5-14.5)
[2024-08-02 08:51] LABS: HEMATOCRIT 33.6 % (37.0-47.0)
[2024-08-02 09:06] LABS: CREATININE, serum 0.69 mg/dL (0.57-1.11); POTASSIUM 3.8 mEq/L (3.5-4.5)
[2024-08-02 17:05] VITALS: BP 121/68; PULSE 104; TEMP 98.4
[2024-08-02 19:01] VITALS: BP_SYST 121
--- NOTE | 2024-08-02 20:30 | NUR ---
PT AWAKE AND RESTING IN BED. DENIES FEELING OF ABDOMINAL PRESSURE AT THIS TIME. PT STATES COUGH HAS IMPROVED. DENIES PAIN. ASSISTED PT WITH DRESSING INTO HOSPITAL GOWN. NO FURTHER CONCERNS. FALL PRECAUTIONS IN PLACE.
[2024-08-03 06:00] VITALS: BP 117/64; PULSE 101; TEMP 98.4
--- NOTE | 2024-08-03 06:35 | NUR ---
PT SLEPT WELL THROUGHOUT THE NIGHT WITH FEW COMPLAINTS. TWO TRIPS TO BSC, X1 ASSIST, PIVOT TRANSFER W/ WALKER. BLADDER SCAN AROUND 2330 SHOWED 238ML. NO R/C NEEDED WHILE PT SLEEPING PER MD ORDER. PT STATES ABDOMINAL PRESSURE IS IMPROVING. NO FURTHER CONCERNS. FALL PRECAUTIONS IN PLACE.
[2024-08-03 07:00] VITALS: BP_SYST 117
--- NOTE | 2024-08-03 09:00 | NUR ---
Pt a&ox4. VSS. No c/o pain or n/v at this time. Pt currently up in w/c eating breakfast. Pt was able to void in the BSC this morning. No straight catheterization required so far. Pt is up with x1 assist, walker, and gait belt. Called lab about no results from UA that we sent down yesterday and no answers from them yet. Dressing on mid back incisions showing sanguineous drainage through it. Dressing change complete. Shift assessment done and medications administered. No further concerns at this time and the call light is within reach.
[2024-08-03 11:47] LABS: COLLECTION METHOD CATHETER
[2024-08-03 12:00] LABS: PH 6.5 (5.0-8.5); URINE APPEARANCE CLOUDY (CLEAR/HAZY); URINE BLOOD 1+ (NEGATIVE); URINE COLOR YELLOW (YELLOW); URINE GLUCOSE NEGATIVE (NEGATIVE); URINE KETONE NEGATIVE (NEGATIVE); URINE NITRATE POSITIVE (NEGATIVE); URINE PROTEIN(semi-quant) TRACE (NEGATIVE); URINE UROBILINOGEN 0.2 E.U/dL (0.2-1.0)
[2024-08-03] MEDS ORDERED: levoFLOXacin 750 MG TAB PO SCH (12:30)
[2024-08-03 17:51] VITALS: BP 137/74; PULSE 109; TEMP 97.9
--- NOTE | 2024-08-03 18:32 | NUR ---
Attempted toileting at 1400 and patient was able to void about 175 on BSC. Bladder scanned after voiding and it showed 580mL left. Straight cathed pt and got 550mL out. Pt denies urge to go again so have not bladder scanned her since 1400 either.
[2024-08-03 18:36] VITALS: BP_SYST 137
--- NOTE | 2024-08-03 20:00 | NUR ---
PT AWAKE AND RESTING IN BED UPON ENTERING ROOM. SCHEDULED MEDS GIVEN PER eMAR. VSS. PT STATES COUGH HAS WORSENED, REFUSES PRN COUGH MED AT THIS TIME. STATES ABDOMINAL PRESSURE HAS IMPROVED. DENIED POWDER AND HYDROCORTISONE CREAM, STATING SHE HASN'T USED IT SEVERAL DAYS. NO FURTHER CONCERNS. ALL NEEDS MET AT THIS TIME. CALL LIGHT WITHIN REACH.
[2024-08-03] MEDS ORDERED: Enoxaparin 120 MG/0.8 ML SYRINGE SQ SCH (21:00)
--- NOTE | 2024-08-03 21:00 | NUR ---
PT TRANSFERRED TO [facility]OT TRANSFER WITH WALKER AND GAIT BELT. DRESSING CHANGED ON R SIDE OF BACK. INCISION SITE SLIGHTLY TENDER WITH MILD ERYTHEMA. PT DENIES PAIN OR DISCOMFORT AT SITE. GAUZE AND PAPER TAPE USED.
--- NOTE | 2024-08-03 23:49 | NUR ---
PT VOIDED ABOUT 275ML OF CLEAR, YELLOW URINE. NO BLADDER SCAN DONE PER MD ORDER.
[2024-08-04 06:12] VITALS: BP 126/69; PULSE 100; TEMP 99.6
[2024-08-04 07:06] VITALS: BP_SYST 126
--- NOTE | 2024-08-04 08:36 | NUR ---
Pt doing well this morning. She was able to stand and pivot to her wheelchair. Pt reports that she was up often last night to use the restroom. Informed her that I would bladder scan her sometime this morning after she voids to check residual. Pt reports only slight tenderness to her right knee area, stated no need for medication at this time. Wound to her back is still slightly draining. Area covered with telfa and papertape. Pt currently working with therapy
--- NOTE | 2024-08-04 13:26 | NUR ---
print room worker met with pt to check-in and assess for needs. She reports no needs and gave SW a "thumbs up." Discharge Plan: re-eval
--- NOTE | 2024-08-04 14:57 | NUR ---
Pt doing well today. She is starting to ambulate more and did ambulate from her wheelchair to the restroom. Pt reports that she feels as if she is emptying bladder when she voids. No complaints at this time, will continue to monitor
--- NOTE | 2024-08-04 16:09 | NUR ---
Pt has been doing well today. She has been on her phone/computer a lot this afternoon. PT appears to be in good spirits and is progressing with her therapy
[2024-08-04 18:11] VITALS: BP 126/81; PULSE 107; TEMP 97.8
[2024-08-04 19:36] VITALS: BP_SYST 126
--- NOTE | 2024-08-04 19:37 | NUR ---
RECEIVED CHANGE OF SHIFT REPORT FROM DAY SHIFT NURSE. PATIENT RESTING IN BED, NO NEEDS REPORTED AT TIME OF REPORT.
[2024-08-05 05:30] VITALS: BP 119/64; PULSE 101; TEMP 97.9
--- NOTE | 2024-08-05 06:59 | NUR ---
CHANGE OF SHIFT REPORT GIVEN TO DAY SHIFT NURSE. PATIENT UP TO BSC WITH X1 ASST WITH GAITBELT AND WALKER. CONTINUES WITH DECREASED STRENGTH TO BLE. DENIES CHEST PAIN/SHORTNESS OF BREATHE/NAUSEA DURING THE SHIFT. EXIT ALARM ON WHEN IN BED AND CALL LIGHT WITHIN PATIENT'S REACH.
[2024-08-05 07:00] VITALS: BP_SYST 119
--- NOTE | 2024-08-05 08:36 | NUR ---
Pt a&ox4. VSS. No c/o pain at this time. Pt currently in bed eating breakfast. Pt is assist x1 with walker and gait belt. Pt now able to ambulate short distances. Shift assessment complete and medications administered. Pt was able to void in the toilet this am. Dressing on R incision on back has sanguineous drainage visible. No further needs at this time. Call light within reach.
[2024-08-05] MEDS ORDERED: Cholecalciferol (Vit D3) 25 MCG (1,000 Units) TAB PO SCH (09:00)
[2024-08-05 18:06] VITALS: BP 154/84; PULSE 112; TEMP 98.2
[2024-08-05 19:00] VITALS: BP_SYST 154
--- NOTE | 2024-08-05 19:21 | NUR ---
RECEIVED CHANGE OF SHIFT REPORT FROM DAY SHIFT NURSE.
--- NOTE | 2024-08-05 20:00 | NUR ---
PATIENT REPORTS STOOLING WITH VOIDS AND STOOL ARE SEMIFORMED WITH NO ABD PAIN REPORTED. DENIES NAUSEA. DENIES CHEST PAIN/SHORTNESS OF BREATH. UP WITH ASST X1 WITH GAITBELT AND WW. DENIES PRODUCTIVE COUGH AND HAS NOT HAD MUCH COUGHING SINCE TAKEN PIYUSH DAI EARLIER. RESTING IN BED WITH EXIT ALARM ON AND CALL LIGHT WITHIN PATIENT'S REACH.
[2024-08-06 05:30] VITALS: BP 127/70; PULSE 109; TEMP 98.9
--- NOTE | 2024-08-06 06:59 | NUR ---
CHANGE OF SHIFT REPORT GIVEN TO DAY SHIFT NURSECATHY.
[2024-08-06 07:01] VITALS: BP_SYST 127
--- NOTE | 2024-08-06 08:00 | NUR ---
Pt a&ox4. VSS. Denies any pain at this time. TEDs on. Currently up in w/c eating breakfast. Aware of therapy schedule for the day. Still voiding good amounts each time she is toileted. No need for bladder scan at this time. Pt still has dry cough. Shift assessment complete and medications administered. Dressing on mid back has small amout of sanguineous drainage present. No further concerns at this time. Call light and personal belongings within reach.
--- NOTE | 2024-08-06 15:56 | NUR ---
SW attended team conference to discuss patient's progress and plan for discharge. Discharge is targeted for 08/14 and recommendations for walker and wheelchair. Patient will require HH for PT/OT at discharge. SW will meet with patient to provide [email or web address] list of HH providers and discuss discharge needs. Discharge plan: Home with HH
[2024-08-06 18:53] VITALS: BP 129/60; PULSE 102; TEMP 98
[2024-08-06 19:00] VITALS: BP_SYST 129
--- NOTE | 2024-08-06 19:00 | NUR ---
RECEIVED CHANGE OF SHIFT REPORT FROM DAY SHIFT NURSE. PATIENT RESTING IN BED, EXIT ALARM ON, CALL LIGTH WITHIN PATIENT'S REACH. NO NEEDS REPORTED AT TIME OF REPORT.
[2024-08-07 05:31] VITALS: BP 133/65; PULSE 101; TEMP 98.2
[2024-08-07 07:00] VITALS: BP_SYST 133
--- NOTE | 2024-08-07 07:04 | NUR ---
Change of shift report given to day shift nurseAustin. Patient reports no needs or concerns at time of report. Resting in bed with exit alarm on and call light within patient's reach.
--- NOTE | 2024-08-07 09:25 | NUR ---
PT UP TO WC FOR BREAKFAST. ATE BREAKFAST, AM MEDS GIVEN ORDERED. SURGICAL WOUND CONTINUES TO DRAIN. DRESSING CHANGE COMPLETE. PT TOLERATING THERAPY.
--- NOTE | 2024-08-07 13:15 | NUR ---
coffee plantation worker met with pt to provide team conference notes from 08/06. Pt was provided Medicare.gov list of Home Health options to review. She has BCBS insurance and SW advised to choose to options in the event the first could not assist her. She chose [facility] or [facility]. Pt agreed with needing a FWW and wheelchair. She was agreeable to [facility]. SW faxed HH referral to [facility]. Discharge Plan: home with HH 08/14, needs DME
--- NOTE | 2024-08-07 15:02 | NUR ---
community placement worker emailed FWW and wheelchair order to [facility].
[2024-08-07 17:19] VITALS: BP 141/81; PULSE 103; TEMP 98.4
[2024-08-07 19:05] VITALS: BP_SYST 141
--- NOTE | 2024-08-08 01:04 | NUR ---
PT LAYING IN BED. ASSESSMENT COMPLETED EARLIER. MEDICATIONS ADMINISTERED PER EMAR. DRESSING WAS REMOVED AND REAPPLIED X2 DUE TO DRAINAGE - XEROFOAM, GAUZE, AND PAPER TAPE WAS USED TO DRESS INCISION. DRESSING IS NOW CLEAN DRY AND INTACT AT THIS TIME. PT WENT TO BATHROOM X1, AND USED BSC X2. PT HAD A BMX1 AND VOIDED X3. PT COMPLAINTS OF PAIN ON BUTT, THIS NURSE LOOKED AT HER BUTTOCKS AND IS VERY RED INBETWEEN BUTTOCKS. THIS NURSE APPLIED ZINC OINTMENT TO AFFECTED AREA WHEN PT GOES TO BATHROOM/COMMODE. PT WAS THEN AMBULATED BACK TO BED. PT HAS A COMPLAINT OF PAIN IN HER RIGHT LEG BEHIND THE KNEE AND UP TO FRONT OF LEG- VOLTERAN GEL APPLIED TO LEG. PT HAS NO OTHER COMPLAINTS AT THIS TIME. CALL LIGHT IS WITHIN REACH, BED IS IN LOWEST POSITION AND BED ALARMS ARE ON.
[2024-08-08 05:59] VITALS: BP 114/58; PULSE 100; TEMP 97.9
[2024-08-08 06:57] VITALS: BP_SYST 114
[2024-08-08 12:04] LABS: BASO # 0.1 K/mm3 (0.0-0.2); BASO % 1.3 % (0.0-2.0); EOS # 0.8 K/mm3 (0.0-0.7); GRAN # 3.5 K/mm3 (1.4-6.5); GRAN % 56.6 % (42.2-75.2); HEMOGLOBIN 11.1 g/dl (12.5-16.0); LYMPH # 1.1 K/mm3 (1.2-3.4); LYMPH % 18.2 % (20.0-51.0); MEAN CELL VOLUME 99 fl (80.0-100.0); MEAN CORPUSCULAR HEMOGLOBIN 31 pg (27-31); MEAN CORPUSCULAR HGB CONC 31 g/dl (33.0-37.0); MEAN PLATELET VOLUME 10.8 fl (7.4-10.4); MONO # 0.6 K/mm3 (0.1-0.6); MONO % 10.4 % (1.7-9.3); PLATELET COUNT 306 K/mm3 (130-400); RED BLOOD COUNT 3.64 M/mm3 (4.10-5.30); REDCELL DISTRIBUTION WIDTH-CV 15.8 % (11.5-14.5)
[2024-08-08 12:08] LABS: HEMATOCRIT 35.9 % (37.0-47.0)
[2024-08-08 12:31] LABS: CALCIUM 9.3 mg/dL (8.4-10.2); CREATININE, serum 0.74 mg/dL (0.57-1.11); POTASSIUM 3.9 mEq/L (3.5-4.5)
--- NOTE | 2024-08-08 13:40 | NUR ---
SANDRA was informed [facility] can accept pt upon discharge. They report pt has met her deductible and HH will be covered at 100%. SANDRA faxed updates. SANDRA met with pt to update her on the above. She verbalized understanding of this and has no concerns. SANDRA informed her the wheelchair and FWW were sent off to [facility] to process prior to discharge. Pt has no further needs. Discharge Plan: home with HH 08/14
[2024-08-08 17:55] VITALS: BP 152/93; PULSE 102; TEMP 98.2
[2024-08-08 19:00] VITALS: BP_SYST 152
--- NOTE | 2024-08-08 20:00 | NUR ---
PT AWAKE AND RESTING IN BED, WATCHING TV. SCHEDULED MEDS GIVEN PER eMAR. LOVENOX GIVEN IN L ARM D/T SEVERAL BRUISES IN ABDOMEN. PT TOLERATED IT WELL. PT DENIES PAIN OR FEELINGS OF DISCOMFORT. NO FURTHER CONCERNS. CALL LIGHT WITHIN REACH.
[2024-08-09 05:58] VITALS: BP 142/82; PULSE 104; TEMP 98.1
--- NOTE | 2024-08-09 06:42 | NUR ---
Pt sleeping in bed. Call light in reach.
--- NOTE | 2024-08-09 06:56 | NUR ---
PT SLEPT THROUGH THE NIGHT WITH NO COMPLAINTS AND SEVERAL BATHROOM TRIPS TO [facility] [place]. BACK DRESSING CHANGED ON RIGHT-SIDED INCISION, GAUZE AND PAPER TAPE USED. NO FURTHER CONCERNS. CALL LIGHT WITHIN REACH.
[2024-08-09 07:09] VITALS: BP_SYST 142
--- NOTE | 2024-08-09 08:45 | NUR ---
Pt sitting up in WC. A&Ox4. Pt crying when this RN entered room. RN sat down and talked with Pt. Pt was embarassed and stated she was humilitated she had a diarrhea episode this AM. This RN consoled Pt. S1S2. Clear lungs on RA. ABD round, soft, non-tender with audible bowel sounds. Palpable pulses in all extremities. ABD has some bruising on R side, tight knots on L side. This RN was told in report, Lovenox Injection was being rotated between arms and ABD due to bruising. This RN clarified with pharmacy. Adelita, Pharmacist, approved injection to be given in arm. Pt denies pain, n/v, headache. Incision on back had CDI dressing. Will change dressing after therapy session this AM. Upper R inner thigh is reddened. Pt wants to try ice pack on it after therapy. No further needs at this time. Call light in reach.
--- NOTE | 2024-08-09 12:51 | NUR ---
Mailing Clerk faxed clinical updates to [facility]
[2024-08-09 17:40] VITALS: BP 122/81; PULSE 98; TEMP 98.2
[2024-08-09 19:00] VITALS: BP_SYST 122
--- NOTE | 2024-08-09 20:00 | NUR ---
Scheduled meds administered per JAN. Pt. c/o persistant cough today. Requested anti-tussive. PRN tessalon perles administered per JAN. Assisted pt. to restroom. Pt. transfers to restroom door via wheelchair then ambulates into restroom w/ x1 assist, walker, and gaitbelt. Pt. v oiding clear yellow urine. Cleansed pt. using personal wipes. Zinc ointment applied to buttocks. Pt. returned to bed and changed into gown per pt. request. Noted moderate amount of serosanguinous drainage to Rt. mid-back incision. Dressings changed using petroleum dressing, gauze, and paper tape. Pt. tolerated well. Shift assessment complete. Noted faint inspiratory/expiratory wheezes over all lung estrella upon auscultation. Wheezing did not clear with cough. Scattered bruising noted to lower abdomen. Rt. mid back incision dressed w/ petroleum dressing and gauze. Dressing CDI. Lt. mid back incision is open to air and edges are well approximated. Redness to gluteal cleft. BLE are edematous pitting +2. Redness to medial aspect of Rt. stauffer. No further outstanding findings. Pt. denies pain at this time. No complaints or requests. Call light in reach and fall precautions in place.
--- NOTE | 2024-08-09 21:30 | NUR ---
PCT assisted pt. to restroom and reported dressing to Rt. mid-back incision appeared soiled. Upon further assessment, this nurse noted dressing is partially saturated w/ serosanguinous drainage and performed dressing change. Pt. tolerated well. Denies pain. Call light in reach.
[2024-08-10 06:00] VITALS: BP 116/64; PULSE 73; TEMP 98.9
--- NOTE | 2024-08-10 06:24 | NUR ---
Pt. resting in bed at this time. Call light in reach and fall precautions in place. Pt. denies requests.
[2024-08-10 06:35] VITALS: BP_SYST 116
--- NOTE | 2024-08-10 06:35 | NUR ---
Pt sleeping in bed. Call light in reach and bed alarm on.
[2024-08-10 07:52] LABS: HEMOGLOBIN 10.3 g/dl (12.5-16.0)
[2024-08-10 07:57] LABS: HEMATOCRIT 33.7 % (37.0-47.0)
--- NOTE | 2024-08-10 09:09 | NUR ---
Pt laying in bed. A&Ox4. VSS. S1S2. Clear lungs on RA. ABD round, soft, non-tender. Pt reports being very tired from staying up late. Denies pain, n/v, headache. Palpable pulses in all extremities. Redness in sacrum area, blanchable. Applying barrier cream/Zinc. Reddness in R lowre leg and R upper thigh. Possible cellulitis. Incison in L middle back is WA, no dressing. R middle back has 2 small spots of dehiscense, lower is draining a yellow fluid. Changed dressing - petroleum gauze, 4x4, and paper tape. Pt denies pain, n/v, headaches at this time. No further needs. Call light in reach.
[2024-08-10] MEDS ORDERED: Furosemide 40 MG TAB PO ONE (12:00)
--- NOTE | 2024-08-10 17:05 | NUR ---
Pt agreeable to bilateral TEDs on LE. TEDs in place. Call light in reach and chair alarm on.
[2024-08-10 17:35] VITALS: BP 131/72; PULSE 96; TEMP 98.4
[2024-08-10 19:09] VITALS: BP_SYST 131
--- NOTE | 2024-08-10 19:10 | NUR ---
RECEIVED CHANGE OF SHIFT REPORT FROM DAY SHIFT NURSE. CONTACT ISOLATION CONTINUES PER D.O. NO NEEDS REPORTED AT TIME OF REPORT.
--- NOTE | 2024-08-10 22:00 | NUR ---
Requested and given Tessalon perls for nonproductive cough, see MAR.
[2024-08-11 06:00] VITALS: BP 109/66; PULSE 100; TEMP 98.7
[2024-08-11 07:02] VITALS: BP_SYST 109
--- NOTE | 2024-08-11 07:21 | NUR ---
CHANGE OF SHIFT REPORT GIVEN TO DAY SHIFT NURSECATHY. PATIENT UP TO BATHROOM EARLIER IN THE SHIFT PRIOR TO HS THEN USED BSC FOR REST OF NIGHT. PATIENT AMBULATED WITH FWW WITH X1 ASST WITH GB WITH NO REPORTED PROBLEMS OR VOICED CONCERNS. EXIT ALARM ON WHEN IN BED WITH CALL LIGHT WITHIN PATIENT'S REACH.
--- NOTE | 2024-08-11 09:00 | NUR ---
Pt a&ox4. VSS. No c/o pain this morning. Pt states that she is very sleepy today. Currently up in w/c watching tv. Pt is up with assist x1, walker, and gait belt. Shift assessment complete and medications administered. No further needs at this time. Call light within reach.
--- NOTE | 2024-08-11 15:25 | NUR ---
Hot Plate Press Operator met with patient to check in and introduce herself. SW reviewed discharge date and plan with patient who verbalized understanding.
[2024-08-11 18:00] VITALS: BP 154/68; PULSE 97; TEMP 97.4
[2024-08-11 19:00] VITALS: BP_SYST 154
--- NOTE | 2024-08-11 19:30 | NUR ---
RECEIVED CHANGE OF SHIFT REPORT FROM DAY SHIFT NURSE.
--- NOTE | 2024-08-11 22:52 | NUR ---
Patient reports to staff she is having urinary urgency "again" denies chills, burning with voids. See [facility] for VS checked. Reported urinary urgency started up again "today".
[2024-08-11 22:55] VITALS: BP 143/68; PULSE 109; TEMP 98.5
--- NOTE | 2024-08-11 23:03 | NUR ---
INFORMED ONCALL PROVIDER OF PATIENT'S REPORT OF INCREASED URINARY URGENCY, ORDERS GIVEN TO GET CLEAN CATCH AND CONTINUE TO MONITOR PATIENT.
--- NOTE | 2024-08-11 23:45 | NUR ---
PATIENT INFORMED EXECUTIVE ACCOUNT MANAGER PROVIDER INFORMED OF HER COMPLAINT OF RECURRENCE OF URINARY URGENCY AND OF D.O. FOR REPEAT CLEAN CATCH UA ORDERED WITH PATIENT INSISTING THAT SHE WILL HAVE US COLLECTED IN AM, REFUSED OFFER OF HAVING SPECIMEN COLLECTED BY STRAIGHT CATH THAT PATIENT RESPONDED "WE'RE NOT DOING THAT". PATIENT WITH NO OTHER NEEDS REPORTED AT THIS TIME.
[2024-08-12 05:34] VITALS: BP 126/61; PULSE 93; TEMP 98.4
--- NOTE | 2024-08-12 05:44 | NUR ---
PATIENT REQUESTED TO HAVE UA COLLECTED PER ST CATH, PATIENT TOLERATED ST CATH WITH NO COMPLAINTS AND URINE SPECIMEN SENT TO LAB PER D.O.
[2024-08-12 05:51] LABS: COLLECTION METHOD CLEAN CATCH
[2024-08-12 06:06] LABS: PH 6.5 (5.0-8.5); URINE APPEARANCE CLEAR (CLEAR/HAZY); URINE BLOOD NEGATIVE (NEGATIVE); URINE COLOR YELLOW (YELLOW); URINE GLUCOSE NEGATIVE (NEGATIVE); URINE KETONE NEGATIVE (NEGATIVE); URINE NITRATE NEGATIVE (NEGATIVE); URINE PROTEIN(semi-quant) NEGATIVE (NEGATIVE); URINE UROBILINOGEN 0.2 E.U/dL (0.2-1.0)
[2024-08-12 07:05] VITALS: BP_SYST 126
--- NOTE | 2024-08-12 07:15 | NUR ---
CHANGE OF SHIFT REPORT GIVEN TO DAY SHIFT NURSEFLOWER.
--- NOTE | 2024-08-12 09:36 | NUR ---
Pt doing well today. She is getting up and walking short distances. Pt stated she is tired today due to not sleeping last night. Pt having urgency and frequency, UA checked, no issues. Dr Carter in to see pt, new orders wrote. Pt reports having some pain to her right leg, denies needing any pain medication.
--- NOTE | 2024-08-12 12:11 | NUR ---
experimental worker faxed clinical updates to [facility]. SW secure emailed updated PT and OT notes to [facility]. Discharge plan: Home with Home Health- [facility]
--- NOTE | 2024-08-12 13:10 | NUR ---
Pt leaving the building for a home visit
[2024-08-12 18:09] VITALS: BP 140/78; PULSE 96; TEMP 97
[2024-08-12 19:00] VITALS: BP_SYST 140
--- NOTE | 2024-08-12 23:01 | NUR ---
PT SITTING IN WHEELCHAIR. PT IS A/OX4. PT HAS NO COMPLAINTS OF N/V OR SOB/SOA. VSS. DENIES ANY PAIN. ASSESSMENT COMPLETED EARLIER. MEDICATIONS ADMINISTERED PER EMAR. PT WENT TO BATHROOM- VOIDED AND HAD A SMALL SOFTLY FORMED BOWEL MOVEMENT. DRESSING WAS SOILED SO THIS NURSE REMOVED OLD DRESSING AND PUT A NEW ONE ON - GAUZE AND PAPER TAPE. A SHORT WHILE LATER THE PT REQUESTED TO GO TO THE BATHROOM AGAIN. PT VOIDED AND HAD A SMALL SOFTLY FORMED BOWEL MOVEMENT. THIS NURSE CHECKED THE DRESSING AGAIN AND SAW SHADOWING ON THE DRESSING- THIS NURSE CHANGED THE DRESSING- GAUZE AND PAPER TAPE. PT WAS AMBULATED BACK TO BED. THIS NURSE ASKED IF THE PT NEEDED ANYTHING ELSE AND PT STATED "CAN I HAVE A WARM BLANKET". THIS NURSE GOT THE PT A WARM BLANKET. THE PT HAS NO OTHER COMPLAINTS AT THIS TIME. CALL LIGHT IS WITHIN REACH. BEDSIDE DESK NEXT TO BED. BED IN LOWEST POSITION WITH BED ALARM ON. NO OTHER COMPLAINTS AT THIS TIME.
[2024-08-13 05:13] VITALS: BP 144/78; PULSE 72; TEMP 97.7
[2024-08-13 05:49] VITALS: BP 135/57; PULSE 109; TEMP 98.9
[2024-08-13 07:00] VITALS: BP_SYST 135
--- NOTE | 2024-08-13 08:00 | NUR ---
PT. UP IN CHAIR. PT. A&O X3, SHIFT ASSESSMENT COMPLETE. PT. RATES PAIN 4/10 AT THIS TIME AND DENIES NEED FOR PAIN MEDICATION. PT. DENIES ANY FURTHER NEEDS. PT. CALL LIGHT WITHIN REACH.
--- NOTE | 2024-08-13 16:11 | NUR ---
Resource Room Special Education Teacher met with patient and her to provide copy of team conference notes. Patient expressed feeling more ready for discharge after her home assessment. SW confirmed with [facility] that wheelchair and walker will be delivered tomorrow. [facility] and will start services on 08/15 with a nursing visit. PT scheduled for 08/16 and OT scheduled for 08/18.
[2024-08-13 18:17] VITALS: BP 126/89; PULSE 106; TEMP 98.2
[2024-08-13 19:00] VITALS: BP_SYST 126
--- NOTE | 2024-08-13 19:17 | NUR ---
PT SITTING IN WHEELCHAIR. PT WENT TO BATHROOM AND HAD A SMALL SOFT FORMED BOWEL MOVEMENT. PT ALSO VOIDED. CHANGED INTO GOWN. DRESSING WAS SOILED. DRESSING CHANGED WITH GAUZE, PAPER TAPE AND NON-ADHERENT DRESSING - DRESSING IS NOT CDI. PT IS NOW IN THE BED. CALL LIGHT IS WITHIN REACH. PT DAUGHTER AT BEDSIDE.
--- NOTE | 2024-08-13 21:04 | NUR ---
PT COMPLAINS OF FEELING FULLNESS IN BLADDER. PT REPORTS GOING TO BATHROOM 45 MINUTES AGO. BLADDER SCANNED PT AND RECORDED 435 ML OF URINE IN BLADDER.
--- NOTE | 2024-08-13 22:10 | NUR ---
STRAIGHT CATH PT. [facility] PROVIDED BEFORE AND AFTER PROCEDURE. STERILE PROCEDURE FOLLOWED. PT TOLERATED WELL. 550ML OF URINE OUT
--- NOTE | 2024-08-13 23:29 | NUR ---
ASSESSMENT COMPLETED EARLIER. MEDICATONS ADMINISTERED PER EMAR. NO COMPLAINTS AT THIS TIME. A/OX4. DENIES N/V. DENIES SOA/SOB. BED IS IN LOWEST POSITION. CALL LIGHT IS WITHIN REACH.
[2024-08-14] MEDS ORDERED: Enoxaparin 120 MG/0.8 ML SYRINGE SQ SCH ×2
[2024-08-14 05:31] VITALS: BP 132/76; PULSE 104; TEMP 97.4
[2024-08-14 07:00] VITALS: BP_SYST 132
--- NOTE | 2024-08-14 09:00 | NUR ---
PT A&OX4. UP IN W/C AT THIS TIME. NO C/O PAIN. SHIFT ASSESSMENT COMPLETE AND MEDICATIONS ADMINISTERED. DRESSING OVER INCISION ON BACK CHANGED. SANGUINEOUS DRAINAGE PRESENT ON OLD DRESSING. UP WITH ASSIST X1, WALKER, AND GAIT BELT. PLANNING TO DISCHARGE HOME WITH HOME HEALTH TODAY. NO FURTHER NEEDS AT THIS TIME. CALL LIGHT WITHIN REACH.
[2024-08-14] MEDS ORDERED: ROBAXIN 75750 MG/TAB PO (09:12)
[2024-08-14] MEDS ORDERED: FLOMAX 0.40.4 MG/CAP PO (09:12)
[2024-08-14] MEDS ORDERED: LOVENOX120 MG/0.8 SQ (09:13)
[2024-08-14] MEDS ORDERED: TESSALON P100 MG/CAP PO (09:14)
[2024-08-14] MEDS ORDERED: PROBIOTIC ACID1 EAC3 PO (09:15)
--- NOTE | 2024-08-14 11:20 | NUR ---
Systems Admin contacted [facility] and faxed discharge orders.
--- NOTE | 2024-08-14 12:27 | NUR ---
Went over discharge instructions with patient. at bedside. Also went over dressing changes and anticoagulant shot training with . Both veralized understanding. Waiting to hear back from pharmacy regarding lovenox shots. Pt and have all belongings packed up.
--- NOTE | 2024-08-14 13:45 | NUR ---
Patient and belongings taken down to exit. Pt was taken down via w/c. Loaded pt and belongings into POV with 's help. taking pt home.
--- NOTE | 2024-08-14 16:07 | NUR ---
Discharge QIM scores were reviewed by the team. Code of 6 chosen for sit to lying was determined by team discussion to be the most usual performance for this patient during the discharge assessment period. Code of 6 chosen for sit to stand was determined by team discussion to be the most usual performance for this patient during the discharge assessment period. Code of 6 chosen for chair to bed was determined by team discussion to be the most usual performance for this patient during the discharge assessment period. Code of 6 chosen for walking 10 feet was determined by team discussion to be the most usual performance for this patient during the discharge assessment period. Code of 4 chosen for 1 step was determined by team discussion to be the most usual performance for this patient during the discharge assessment period. Code of 88 chosen for 12 steps was determined by team discussion to be the most usual performance for this patient during the discharge assessment period.--Jacinta Rashid, PD
== END 2024-08-14 13:50 | disposition home health service (06) | DRG 58 ==
PROVIDERS: Hospitalist; Internal Medicine; Nurse Practitioner Family; Physician Assistant; ADMIT Physical Medicine & Rehabilitation Sports Medicine
DX: G35 Multiple sclerosis (principal); I26.99 Other pulmonary embolism without acute cor pulmonale; J18.9 Pneumonia, unspecified organism; U07.1 COVID-19; I82.403 Acute embolism and thrombosis of unspecified deep veins of lower extremity, bilateral; N17.9 Acute kidney failure, unspecified; A04.72 Enterocolitis due to Clostridium difficile, not specified as recurrent; N39.0 Urinary tract infection, site not specified; R26.89 Other abnormalities of gait and mobility; R29.898 Other symptoms and signs involving the musculoskeletal system; G89.29 Other chronic pain; R53.81 Other malaise; M54.16 Radiculopathy, lumbar region; N31.9 Neuromuscular dysfunction of bladder, unspecified; R23.1 Pallor; L29.9 Pruritus, unspecified; I10 Essential (primary) hypertension; D64.9 Anemia, unspecified; L89.892 Pressure ulcer of other site, stage 2; Z79.01 Long term (current) use of anticoagulants; Z98.1 Arthrodesis status; Z74.09 Other reduced mobility; Z79.899 Other long term (current) drug therapy; Z79.891 Long term (current) use of opiate analgesic; B96.20 Unspecified Escherichia coli [E. coli] as the cause of diseases classified elsewhere; R33.9 Retention of urine, unspecified; R35.0 Frequency of micturition
CPT/HCPCS: A9284; J1650; J1956; J2185

== ENCOUNTER → 2024-10-21 | Outpatient (CLI) | payer BC ==
[~2024-10-21] MED LIST changes: +BENADRYL25 M2 PO; +FLOMAX 0.40.4 MG/CAP PO; +HYDROCORTISONE30 G3 TP; +IMITREX100 MG PO; +Iohexol 300 - 100 ML VIAL IV ONE; +K-DUR20 MEQ PO; +LASIX 20MG TABL20 MG PO; +LOVENOX120 MG/0.8 SQ; +LOVENOX150 MG/ML SQ; +MASON NATURAL2000 IU PO; +NS 100 ML IV SCH; +PROBIOTIC ACID1 EAC3 PO; +ROBAXIN 75750 MG/TAB PO; +ROXICODONE 55 MG/TAB PO; +SALONPAS1 EACH TP; +TESSALON P100 MG/CAP PO; +TUMS500 MG PO; +[UNRECOGNIZED DRUG - OTHER] PO; +[UNRECOGNIZED DRUG - OTHER] TOP
== END ==
LOC: COL.RAD 09:12
DX: I82.531 Chronic embolism and thrombosis of right popliteal vein (principal)
CPT/HCPCS: Q9967